=== PATIENT | male | born 1945 | race Caucasian/White ===

== ENCOUNTER → 2020-03-09 | Day surgery (SDC) | payer OTHER, BC ==
[2020-03-05 15:53] VITALS: BMI 31.4
[~2020-03-09] MED LIST: BUPIVACAINE HCL/PF 0.25% (2.5MG/ML) 10 ML VIAL IJ ONE; BUPIVACAINE HCL/PF 2.5 MG/ML - 30 ML VIAL IJ ONE; EPHEDRINE SULFATE/0.9% NACL/PF 50 MG/10 ML SYRINGE NR ONE; LACTATED RINGERS SOLUTION 1,000 ML IV SCH; LIDOCAINE HCL/PF 2% SDV 5ML VIAL ONE; MIDAZOLAM HCL 2 MG/2 ML SINGLE DOSE VIAL ONE; ONDANSETRON 4 MG/2 ML VIAL IVPUSH PRN; ONDANSETRON 4 MG/2 ML VIAL ONE; PROPOFOL 20 ML ONE; ceFAZolin 2 GRAM PREMIX BAG IVPB ONE; ceFAZolin SODIUM 1 GM VIAL ONE; oxyCODONE HCL 5 MG TABLET PO PRN
[2020-03-09 12:39] VITALS: PULSE 71; TEMP 97.8
[2020-03-09 12:48] VITALS: BP 124/68
== END | disposition home or self-care (01) ==
LOC: EDSEX → FASU 06:50
PROVIDERS: ATTEND Orthopaedic Surgery
PROC: 0SBC4ZZ Excision of Right Knee Joint, Percutaneous Endoscopic Approach (ICD-10-PCS; 2020-03-09)
PROC: 0SBC4ZZ Excision of Right Knee Joint, Percutaneous Endoscopic Approach (ICD-10-PCS; 2020-03-09)
PROC: 0SBC4ZZ Excision of Right Knee Joint, Percutaneous Endoscopic Approach (ICD-10-PCS; 2020-03-09)
PROC: 0SBC4ZZ Excision of Right Knee Joint, Percutaneous Endoscopic Approach (ICD-10-PCS; principal; 2020-03-09 08:30)
DX: S83.281A Other tear of lateral meniscus, current injury, right knee, initial encounter (principal); S83.241A Other tear of medial meniscus, current injury, right knee, initial encounter; M65.861 Other synovitis and tenosynovitis, right lower leg; M67.51 Plica syndrome, right knee; X58.XXXA Exposure to other specified factors, initial encounter; Y93.9 Activity, unspecified; Y92.9 Unspecified place or not applicable; Y99.9 Unspecified external cause status
CPT/HCPCS: 82962; 88304-TC; 94760

== ENCOUNTER 2022-06-22 15:32 | Emergency (ER) | payer OTHER, BC ==
[2022-06-22 15:40] VITALS: BP 143/79; PULSE 85; RESP 20; TEMP 98.2; BMI 24.6
[2022-06-22 16:40] LABS: BASO % 1.4 % (0-2.0); EOS % 7.2 % (0-4.5); HEMATOCRIT 35.8 % (35.4-49); HEMOGLOBIN 12.4 GM/dL (11.7-16.9); LYMPH % 29.9 % (8-40); MCH 30.1 pg (25.7-33.7); MCHC 34.7 g/dl (32.0-35.9); MEAN CELL VOLUME 86.6 fl (80-96); MEAN PLT VOLUME 8.1 fl (7.5-11.1); MONO % 9.9 % (3.8-10.2); NEUT % 51.6 % (42.8-82.8); PLATELET COUNT 175 10^3/uL (134-434); RBC 4.14 M/mm3 (4.00-5.60); RDW 14.1 % (11.9-15.9); WHITE BLOOD COUNT 6.1 K/mm3 (4.0-10.0)
[2022-06-22 17:04] LABS: POTASSIUM 4.5 mmol/L (3.5-5.1)
[2022-06-22 17:05] LABS: CALCIUM 9.2 mg/dL (8.5-10.1)
[2022-06-22 17:06] LABS: ALBUMIN 3.8 g/dl (3.4-5.0); BLOOD UREA NITROGEN 19.7 mg/dL (7-18)
[2022-06-22 17:09] LABS: CREATININE 1.4 mg/dL (0.55-1.3)
[2022-06-22 17:11] LABS: TOT PROT 6.9 g/dl (6.4-8.2)
[2022-06-22] MEDS ORDERED: valACYclovir HCL 500 MG TABLET (FP) ONE (17:21)
[2022-06-22] MEDS ORDERED: valACYclovir HCL 1000 MG TABLET PO ONE (17:21)
== END 2022-06-22 17:30 | disposition home or self-care (01) ==
LOC: JERFT 15:32 → JER 15:32 → JERFT 17:30
DX: B02.7 Disseminated zoster (principal)
CPT/HCPCS: 36415; 80053; 85025; 99283-25

== ENCOUNTER 2022-10-19 03:49 | Observation (INO) | payer OTHER, BC ==
[2022-10-19 03:54] VITALS: BMI 25.1
[2022-10-19] MEDS ORDERED: DEXTROSE 50%-WATER - 25 GM/50 ML VIAL IVPUSH ONE (04:20)
[2022-10-19] MEDS ORDERED: DEXTROSE 50%-WATER 25 GM/50 ML DISP.SYRIN IVPUSH PRN (04:31)
[2022-10-19 05:42] LABS: BASO % 0.6 % (0-2.0); EOS % 2.2 % (0-4.5); HEMATOCRIT 38.5 % (35.4-49); HEMOGLOBIN 12.8 GM/dL (11.7-16.9); MCH 29.9 pg (25.7-33.7); MCHC 33.4 g/dl (32.0-35.9); MEAN CELL VOLUME 89.8 fl (80-96); MEAN PLT VOLUME 8.2 fl (7.5-11.1); MONO % 7.4 % (3.8-10.2); NEUT % 72.8 % (42.8-82.8); PLATELET COUNT 171 10^3/uL (134-434); RBC 4.29 M/mm3 (4.00-5.60); RDW 13.1 % (11.9-15.9)
[2022-10-19 05:56] LABS: INR 1.06 (0.83-1.09); PROTHROMBIN TIME (PATIENT) 12.3 SEC (9.7-13.0)
[2022-10-19 05:59] LABS: ACTIVATED PTT 29.9 SECONDS (25.2-36.5); CALCIUM 8.8 mg/dL (8.5-10.1)
[2022-10-19 06:00] LABS: BLOOD UREA NITROGEN 20.6 mg/dL (7-18)
[2022-10-19 06:03] LABS: CREATININE 1.2 mg/dL (0.55-1.3)
[2022-10-19 06:04] LABS: BILIRUBIN,TOTAL 0.8 mg/dL (0.2-1); TOT PROT 6.8 g/dl (6.4-8.2)
[2022-10-19 09:42] VITALS: BP 145/67; PULSE 74; RESP 16; TEMP 98.1
== END 2022-10-19 10:00 | disposition left against medical advice (07) ==
LOC: JER 03:49 → JERBED 07:17
PROVIDERS: ADMIT Internal Medicine; ATTEND Internal Medicine
DX: E11.649 Type 2 diabetes mellitus with hypoglycemia without coma (principal); E78.00 Pure hypercholesterolemia, unspecified; I10 Essential (primary) hypertension; Z79.4 Long term (current) use of insulin; Z95.5 Presence of coronary angioplasty implant and graft
CPT/HCPCS: 36415; 71045-TC-FY; 80053; 82550; 82962; 84484; 85025; 85610; 85730; 93005; 93010; 99285-25; G0378

== ENCOUNTER 2023-03-24 04:32 | Day surgery (SDC) | payer OTHER, BC ==
[2023-03-12 14:46] VITALS: BMI 20.7
[~2023-03-24 04:32] MED LIST changes: +ACETAMINOPHEN 500 MG TABLET (FP) PO PRN; -BUPIVACAINE HCL/PF 0.25% (2.5MG/ML) 10 ML VIAL IJ ONE; -BUPIVACAINE HCL/PF 2.5 MG/ML - 30 ML VIAL IJ ONE; -EPHEDRINE SULFATE/0.9% NACL/PF 50 MG/10 ML SYRINGE NR ONE; -LACTATED RINGERS SOLUTION 1,000 ML IV SCH; -LIDOCAINE HCL/PF 2% SDV 5ML VIAL ONE; -MIDAZOLAM HCL 2 MG/2 ML SINGLE DOSE VIAL ONE; -ONDANSETRON 4 MG/2 ML VIAL IVPUSH PRN; -ONDANSETRON 4 MG/2 ML VIAL ONE; -PROPOFOL 20 ML ONE; -ceFAZolin 2 GRAM PREMIX BAG IVPB ONE; -ceFAZolin SODIUM 1 GM VIAL ONE; -oxyCODONE HCL 5 MG TABLET PO PRN
[2023-03-24] MEDS ORDERED: BUPIVACAINE HCL/PF 0.5% (5MG/ML) 10 ML VIAL ONE (07:45)
[2023-03-24] MEDS ORDERED: LIDOCAINE HCL/PF 1% SDV 5ML VIAL ONE (07:46)
[2023-03-24] MEDS ORDERED: ACETAMINOPHEN 500 MG TABLET (FP) PO PRN (11:08)
[2023-03-24 11:27] VITALS: RESP 18
[2023-03-24] MEDS: BUPIVACAINE HCL/PF 0.5% (5 MG/ML) 30 ML VIAL IJ ONE (12:05)
[2023-03-24 13:26] VITALS: BP 132/62; PULSE 73; TEMP 97.5
== END 2023-03-24 13:20 | disposition home or self-care (01) ==
LOC: JASU-SURG 04:32
PROVIDERS: ATTEND Pain Medicine Pain Medicine
PROC: 3E0T33Z Introduction of Anti-inflammatory into Peripheral Nerves and Plexi, Percutaneous Approach (ICD-10-PCS; 2023-03-24)
PROC: 3E0T3BZ Introduction of Anesthetic Agent into Peripheral Nerves and Plexi, Percutaneous Approach (ICD-10-PCS; principal; 2023-03-24 12:45)
DX: M47.812 Spondylosis without myelopathy or radiculopathy, cervical region (principal)
CPT/HCPCS: 76000-TC-FY

== ENCOUNTER 2023-04-19 16:41 | Emergency (ER) | payer OTHER, BC ==
[2023-04-19 16:54] VITALS: BMI 23.9
[2023-04-19 18:13] LABS: BASO % 0.8 % (0-2.0); EOS % 3.1 % (0-4.5); HEMATOCRIT 33.5 % (35.4-49); HEMOGLOBIN 11.6 GM/dL (11.7-16.9); LYMPH % 30.8 % (8-40); MCH 30.9 pg (25.7-33.7); MCHC 34.7 g/dl (32.0-35.9); MEAN CELL VOLUME 89.1 fl (80-96); MONO % 8.8 % (3.8-10.2); NEUT % 56.5 % (42.8-82.8); PLATELET COUNT 163 10^3/uL (134-434); RBC 3.76 M/mm3 (4.00-5.60); RDW 14.7 % (11.9-15.9)
[2023-04-19 18:21] LABS: INR 1.08 (0.83-1.09); PROTHROMBIN TIME (PATIENT) 12.5 SEC (9.7-13.0)
[2023-04-19 18:24] LABS: ACTIVATED PTT 26.4 SECONDS (25.2-36.5)
[2023-04-19] MEDS ORDERED: ACETAMINOPHEN INJECTION 100 ML IVPB ONE (18:30)
[2023-04-19 18:39] LABS: POTASSIUM 4.4 mmol/L (3.5-5.1)
[2023-04-19 18:42] LABS: ALBUMIN 3.5 g/dl (3.4-5.0); BLOOD UREA NITROGEN 23.5 mg/dL (7-18); CALCIUM 9.4 mg/dL (8.5-10.1)
[2023-04-19 18:45] LABS: CREATININE 1.9 mg/dL (0.55-1.3)
[2023-04-19 18:47] LABS: BILIRUBIN,TOTAL 0.5 mg/dL (0.2-1); TOT PROT 6.7 g/dl (6.4-8.2)
[2023-04-19] MEDS: ACETAMINOPHEN 1000 MG/100 ML BAG IVPB ONE (18:50)
[2023-04-19] MEDS: SODIUM CHLORIDE 0.9% 500 ML INFUS.BAG IV ONE (18:50)
[2023-04-19 19:07] LABS: PH,URINE 6.5 (5.0-8.0); URINE APPEARANCE Error; URINE BILIRUBIN NEGATIVE (NEGATIVE); URINE COLOR YELLOW; URINE GLUCOSE (UA) 3+ (NEGATIVE); URINE KETONE NEGATIVE (NEGATIVE); URINE LEUK ESTERASE NEGATIVE (NEGATIVE); URINE NITRITE NEGATIVE (NEGATIVE); URINE PROTEIN NEGATIVE (NEGATIVE)
[2023-04-19] MEDS ORDERED: KETOROLAC TROMETHAMINE 30 MG/1 ML VIAL ONE (20:30)
[2023-04-19] MEDS ORDERED: LIDOCAINE 4% PATCH TP ONE (20:30)
[2023-04-19 20:38] VITALS: BP 133/70; PULSE 84; RESP 19; TEMP 98.2
[2023-04-19] MEDS: LIDOCAINE 4% PATCH TP ONE (20:40)
[2023-04-19] MEDS: KETOROLAC TROMETHAMINE 30 MG/1 ML VIAL IVPUSH ONE (20:40)
[2023-04-20] MEDS ORDERED: LIDOCAINE PATCH REMOVAL MC SCH (08:00)
== END 2023-04-19 21:06 | disposition home or self-care (01) ==
LOC: JER 16:41
PROC: 3E033NZ Introduction of Analgesics, Hypnotics, Sedatives into Peripheral Vein, Percutaneous Approach (ICD-10-PCS; principal; 2023-04-19)
PROC: 3E0333Z Introduction of Anti-inflammatory into Peripheral Vein, Percutaneous Approach (ICD-10-PCS; 2023-04-19)
DX: R29.6 Repeated falls (principal); R53.1 Weakness; M25.512 Pain in left shoulder; R26.2 Difficulty in walking, not elsewhere classified; R42 Dizziness and giddiness; R62.7 Adult failure to thrive; W01.198A Fall on same level from slipping, tripping and stumbling with subsequent striking against other object, initial encounter; Y92.002 Bathroom of unspecified non-institutional (private) residence as the place of occurrence of the external cause
CPT/HCPCS: 36415; 70450-TC; 71045-TC-FY; 72125-TC; 72170-TC-FY; 73030-TC-LT-FY; 80053; 81003; 84484; 85025; 85610; 85730; 86850; 86900; 86901; 87086; 93005; 93010; 99285-25; J0131